=== PATIENT | male | born 1965 | race Caucasian/White ===

== ENCOUNTER 2023-08-24 10:21 | Day surgery (SDC) | payer OTHER, SELFPAY ==
[2023-08-24] VITALS (16 sets, daily range): BP systolic 109–150; BP diastolic 52–92; PULSE 61–81; RESP 14–18; TEMP 35.9–36; O2SAT 94–99; BMI 31.4
--- NOTE | 2023-08-24 10:28 | ECG_ITS ---
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
[2023-08-24 10:39] LABS: Basophils Percent Auto 0.4 % (0.2-2.0); Eosinophils Percent Auto 0.4 % (0.9-7.0); Hematocrit 46.5 % (42.0-54.0); Hemoglobin 14.8 g/dL (14.0-18.0); Immature Granulocytes Abs Auto 0.02 10^3/uL (0.00-0.03); Immature Granulocytes Pct Auto 0.3 % (0.0-0.5); Lymphocytes Absolute Auto 1.8 10^3/uL (1.2-3.8); Lymphocytes Percent Auto 26.5 % (20.5-60.0); Mean Corpuscular HGB Conc 31.8 g/dL (29.9-35.2); Mean Corpuscular Hemoglobin 27.2 pg (25.9-34.0); Mean Corpuscular Volume 85.5 fL (80.0-94.0); Mean Platelet Volume 9.7 fL (9.5-13.5); Monocytes Absolute Auto 0.5 10^3/uL (0.3-0.8); Neutrophils Absolute Auto 4.3 10^3/uL (1.4-6.5); Neutrophils Percent Auto 64.4 % (43.0-75.0); Platelet Count 184 10^3/uL (150-450); Red Blood Count 5.44 10^6/uL (4.70-6.10); Red Cell Distribution Width 15.1 % (11.0-15.0); White Blood Count 6.8 10^3/uL (4.0-11.0)
[2023-08-24 10:53] LABS: INR 0.94; Partial Thromboplastin Time 29.2 sec (22.3-36.2)
--- NOTE | 2023-08-24 14:06 | PC.NURSE ---
Dr. James, Dr. Thompson and this RN performed a time out with patient per protocol. Patient informed of procedure. Patient seen by Dr. Suresh and correct side marked. Correct side identified with patient. Patient hooked up to monitors. Patient positioned per anesthesias request. Interscalene block initiated with ultrasound guidance. Patient tolerated procedure well, vital signs stable throughout procedure, see documented vital signs. Patient cleaned up following procedure and repositioned for comfort. Patient given call light and denies further needs at this time.
[2023-08-24] MEDS: LACTATED RINGER'S SOLUTION 1,000 ML 50 ML IV ×2 (14:25→16:07)
[2023-08-24] MEDS: CEFAZOLIN SODIUM/DEXTROSE,ISO 2 GM/50 ML PIGGYBACK IV (14:25)
[2023-08-24] MEDS: EPINEPHRINE HCL PF 1 MG/ML AMPULE IO (16:06)
--- NOTE | 2023-08-24 17:04 | PM.ORPRC ---
Procedure Note Date of procedure: 08/24/23 Pre-op diagnosis: 1. Left shoulder rotator cuff tear 2. Partial-thickness biceps tendon tear Post-op diagnosis: same as pre-op Procedure: Operation performed: 1. Left shoulder arthroscopic rotator cuff repair of the subscapularis and supraspinatus tendons 2. Left open subpectoralis biceps tenodesis Operative procedure: After informed consent was obtained the patient brought to the operating room where general anesthetic was administered. Preoperatively regional block was placed. Patient was placed in the beachchair position and exam under anesthesia the left shoulder revealed full range of motion and no instability. Diagnostic arthroscopy was performed through standard posterior, anterior and lateral arthroscopy portals after the left shoulder was prepped and draped in the usual sterile fashion. Findings included intact articular cartilage of the glenohumeral joint. The biceps tendon was found to be dislocated anteriorly and torn within the joint. This was tenotomized for later tenodesis. There was a full-thickness 2 cm retracted tear of the upper 1.5 cm of subscapularis. The supraspinatus was torn and minimally retracted. Infraspinatus was intact. No loose bodies within the axillary recess. Labrum was intact circumferentially. The lesser tuberosity where the rotator cuff was torn from was debrided down to bleeding bed of bone. 1 Arthrex 5.5 FT bio composite double loaded suture anchor was placed in the footprint of the lesser tuberosity. The scorpion suture passer was next used to pass the 2 sutures through the torn subscapularis tendon. These were tied in a simple fashion nicely repairing the tendon back down to the bone. The arthroscope was introduced in the subacromial space and there was moderate bursal inflammation which was removed with the arthroscopic shaver. The greater tuberosity where the supraspinatus is torn from was debrided down through bleeding bed of bone. 1 Arthrex suture tape and 1 Arthrex fiber tape were placed in an inverted horizontal mattress into the torn supraspinatus tendon. These were then repaired to the greater tuberosity with 1 Arthrex 4.75 bio composite swivel lock. The retention 2-0 suture was passed posterior to the repair through the torn rotator cuff to augment the repair and tied in a simple fashion. Solid repair was achieved. Shoulder was drained of arthroscopy fluid and portals were closed with nylon suture. A 3 cm incision was made in the pre-existing transverse arm crease just below the pectoralis tendon. Blunt dissection was carried down through soft tissue for a subpectoralis approach. Tenotomized biceps tendon was removed and sized to 6 mm. The Arthrex suture loop was placed through the tendon starting at the muscle tendon junction for 2 cm. The 2 suture ends were then placed through a proximal biceps tendon button. The guidepin for the biceps repair kit was then placed in a bicortical fashion at the appropriate position in the back simple groove. A 6 mm unicortical drill hole was created over the top of this. The biceps button was then passed to the far cortex and flipped. Sutures were pulled pulling the tendon into the tunnel. Sutures then tied. Solid repair was achieved. Wound was irrigated and closed with absorbable suture in layers. Sterile dressing was placed. UltraSling was placed. Patient was awakened and brought to the recovery in stable condition. There were no intraoperative or immediate postoperative complications.
--- NOTE | 2023-08-24 17:42 | PC.NURSE ---
Assisted up to chair without difficulty
== END 2023-08-24 18:03 | disposition home or self-care (01) ==
PROVIDERS: Visit Provider Orthopaedic Surgery
PROC: (CPT 23430; principal; 2023-08-24 13:30)
DX: M75.122 Complete rotator cuff tear or rupture of left shoulder, not specified as traumatic (principal); S46.212A Strain of muscle, fascia and tendon of other parts of biceps, left arm, initial encounter; D64.9 Anemia, unspecified; X58.XXXA Exposure to other specified factors, initial encounter
CPT/HCPCS: 23430; 29827; 36415; 64415; 76942; 85025; 85610; 85730; 93005; C1713; J2704